=== PATIENT | female | born 1945 | race Caucasian/White ===

== ENCOUNTER → 2016-06-28 | Outpatient (CLI) | payer MEDICARE, OTHER ==
[2016-06-28 10:46] LABS: RED BLOOD COUNT 3.65 M/UL (4.00-5.10); WHITE BLOOD COUNT 3.6 K/UL (4.5-11.0)
== END ==
LOC: LAB 09:49
PROVIDERS: Internal Medicine Hematology & Oncology
DX: D50.9 Iron deficiency anemia, unspecified (principal); K90.9 Intestinal malabsorption, unspecified; D72.819 Decreased white blood cell count, unspecified
CPT/HCPCS: 36415; 80053; 82728; 83540; 83550; 84238; 85025

== ENCOUNTER 2020-05-20 19:00 | Emergency (ER) | payer MEDICARE, OTHER ==
[~2020-05-20 19:00] MED LIST: AUGMENTIN 875-1 EACH PO; NORCO 5-325 TA1 EACH PO
[2020-05-20] MEDS ORDERED: HYDROCODON-ACE1 EAC4 PO (21:18)
== END 2020-05-20 22:23 | disposition home or self-care (01) ==
LOC: ER1 19:00
DX: S42.211A Unspecified displaced fracture of surgical neck of right humerus, initial encounter for closed fracture (principal); Z85.3 Personal history of malignant neoplasm of breast; W19.XXXA Unspecified fall, initial encounter; Y92.009 Unspecified place in unspecified non-institutional (private) residence as the place of occurrence of the external cause
CPT/HCPCS: 73030; 73200; 99284

== ENCOUNTER 2020-06-27 12:55 | Emergency (ER) | payer MEDICARE, OTHER ==
[~2020-06-27 12:55] MED LIST changes: +HYDROCODON-ACE1 EAC4 PO
[2020-06-27 14:33] LABS: HEMOGLOBIN 8.5 gm/dl (12.3-15.3); RED BLOOD COUNT 2.82 M/UL (4.00-5.10)
[2020-06-27 14:46] LABS: WHITE BLOOD COUNT 0.9 K/UL (4.5-11.0)
== END 2020-06-27 19:00 ==
LOC: ER1 12:55
PROVIDERS: Family Medicine
DX: J96.01 Acute respiratory failure with hypoxia (principal); D70.9 Neutropenia, unspecified; D64.9 Anemia, unspecified; E86.0 Dehydration; I44.7 Left bundle-branch block, unspecified; I26.99 Other pulmonary embolism without acute cor pulmonale; Z20.822 Contact with and (suspected) exposure to COVID-19; I10 Essential (primary) hypertension; E78.00 Pure hypercholesterolemia, unspecified; Z92.21 Personal history of antineoplastic chemotherapy; Z85.3 Personal history of malignant neoplasm of breast; Z79.899 Other long term (current) drug therapy; Z90.710 Acquired absence of both cervix and uterus
CPT/HCPCS: 0240U; 36415; 36600; 71045; 80053; 81001; 82550; 82553; 82803; 83605; 83735; 83874; 83880; 84439; 84443; 84484; 85025; 85610; 87040; 93005; 96374; 99285; J1644; J2550; Q9967